=== PATIENT | female | born 1940 | race Caucasian/White ===

== ENCOUNTER → 2022-08-17 | Outpatient (CLI) | payer MEDICARE, OTHER | LOC: CARD 13:00 | PROVIDERS: ATTEND Internal Medicine Critical Care Medicine | DX: J44.9 Chronic obstructive pulmonary disease, unspecified (principal); J96.21 Acute and chronic respiratory failure with hypoxia; I51.7 Cardiomegaly; R91.1 Solitary pulmonary nodule | CPT/HCPCS: 93306 ==